=== PATIENT | female | born 1950 | race Caucasian/White ===

== ENCOUNTER 2018-03-16 15:00 | Inpatient (IN) | payer OTHER ==
[~2018-03-16] VITALS: Ht 160 cm; Wt 69.9 kg
[2018-03-17] MEDS ORDERED: ATACAND16 MG (12:55)
[2018-03-17] MEDS ORDERED: TOPROL XL25 M1 (12:55)
== END 2018-03-24 19:04 | disposition home or self-care (01) | DRG 331 ==
LOC: O/R 03-21 06:30 → SURH 03-21 07:00 → SURG 03-22 13:19
PROVIDERS: Colon & Rectal Surgery
PROC: 07TC4ZZ Resection of Pelvis Lymphatic, Percutaneous Endoscopic Approach (ICD-10-PCS; 2018-03-21)
PROC: 0DTP4ZZ Resection of Rectum, Percutaneous Endoscopic Approach (ICD-10-PCS; 2018-03-21)
PROC: 0DJD8ZZ Inspection of Lower Intestinal Tract, Via Natural or Artificial Opening Endoscopic (ICD-10-PCS; 2018-03-21)
PROC: 0DTN4ZZ Resection of Sigmoid Colon, Percutaneous Endoscopic Approach (ICD-10-PCS; principal; 2018-03-21 07:00)
DX: C19 Malignant neoplasm of rectosigmoid junction (principal); R59.0 Localized enlarged lymph nodes; I11.9 Hypertensive heart disease without heart failure; R73.01 Impaired fasting glucose; D64.89 Other specified anemias

== ENCOUNTER 2018-07-11 16:11 | Outpatient (CLI) | payer OTHER ==
[~2018-07-11 16:11] MED LIST: ATACAND16 MG; TOPROL XL25 M1
== END 2018-07-11 16:40 | disposition home or self-care (01) ==
LOC: RAD 16:11
DX: C19 Malignant neoplasm of rectosigmoid junction (principal); Z85.038 Personal history of other malignant neoplasm of large intestine; Z01.810 Encounter for preprocedural cardiovascular examination

== ENCOUNTER 2018-08-02 05:51 | Day surgery (SDC) | payer OTHER ==
[~2018-08-02 05:51] MED LIST changes: +LEVAQUIN500 MG PO; +TOPROL XL25 M1 PO
== END 2018-08-02 11:55 | disposition home or self-care (01) ==
LOC: CIR.AMB 05:51
DX: C19 Malignant neoplasm of rectosigmoid junction (principal)
CPT/HCPCS: 36561; C1751

== ENCOUNTER 2021-04-26 06:43 | Emergency (ER) | payer OTHER ==
[~2021-04-26] VITALS: Ht 160 cm; Wt 76.2 kg
[2021-04-26] MEDS ORDERED: LASIX20 MG (07:01)
[2021-04-26] MEDS ORDERED: CIPRO500 MG PO (10:03)
[2021-04-26] MEDS ORDERED: XYLOCAINE JELLY 221 TOP (10:09)
== END 2021-04-26 10:11 | disposition home or self-care (01) ==
LOC: ER 06:43
DX: N39.0 Urinary tract infection, site not specified (principal)